=== PATIENT | male | born 1970 | race African-American/Black ===

== ENCOUNTER 2016-06-25 08:36 | Outpatient (CLI) | payer MEDICARE ==
[2016-06-25 12:36] LABS: #Basophils 0.1 thou/uL (0.0-0.2); #Eosinphils 0.2 thou/uL (0.0-0.7); #Lymphocytes 1.2 thou/uL (1.20-3.40); #Monocytes 0.3 thou/uL (0.11-0.59); #Neutrophils 2.6 thou/uL (1.40-6.50); %Basophils 1.2 % (0.0-1.0); %Eosinophils 3.6 % (0.0-10.0); %Lymphocytes 27.7 % (21.0-51.0); Hematocrit 44.3 % (42.0-52.0); Mean Platelet Volume 8.4 fL (7.4-10.4); Red Blood Cell (RBC) Count 4.59 mill/uL (4.70-6.10); White Blood Cell (WBC) Count 4.4 thou/uL (4.8-10.8)
[2016-06-25 12:37] LABS: Blood, Urine Negative (Negative); Glucose, Urine (Dipstick) Negative (Negative); Ketone, Urine Negative (Negative); Nitrite Negative (Negative); Protein, Urine (Dipstick) Trace mg/dL (Neg-Trace); Urobilinogen 0.2 mg/dL (0.2-1.0)
[2016-06-25 12:41] LABS: Bilirubin Negative (Negative)
[2016-06-25 12:55] LABS: ALT (SGPT) 24 U/L (0-55); AST (SGOT) 17 U/L (5-34); Alkaline Phosphatase 132 U/L (40-150); Anion Gap 12 mmol/L (10-20); BUN (Urea Nitrogen) 20 mg/dL (8.9-20.6); Bilirubin, Total 0.4 mg/dL (0.2-1.2); Calc. Creatinine Clearance 0 mL/min (70-130); Calcium 8.5 mg/dL (7.8-10.44); Carbon Dioxide 27 mmol/L (22-29); Chloride 107 mmol/L (98-107); Estimated GFR-MDRD 49; Globulin 3.2 g/dL (2.4-3.5); LDL Cholesterol, Calculated 77 mg/dL; Protein, Total 6.9 g/dL (6.0-8.3)
== END 2016-06-25 08:37 | disposition home or self-care (01) ==
LOC: NAVSJIPCSP 08:36
PROVIDERS: ATTEND Internal Medicine
DX: I12.9 Hypertensive chronic kidney disease with stage 1 through stage 4 chronic kidney disease, or unspecified chronic kidney disease (principal); N18.3 Chronic kidney disease, stage 3 (moderate); R56.9 Unspecified convulsions
CPT/HCPCS: 36415; 80053; 80061; 80156; 81003; 84443; 85025; 86803; G0103

== ENCOUNTER 2016-11-08 14:29 | Observation (INO) | payer MEDICARE ==
[2016-11-08] MEDS ORDERED: Lorazepam 2 MG/ML VIAL ONE (15:00)
[2016-11-08] MEDS ORDERED: diphenhydrAMINE HCl 50 MG/ML 1 ML VIAL ONE (15:01)
[2016-11-08] MEDS ORDERED: Metoclopramide HCl 10 MG/2 ML VIAL ONE (15:01)
[2016-11-08] MEDS ORDERED: Sodium Chloride 0.9% 0 ML ONE ×2 (15:02→15:03)
[2016-11-08] MEDS ORDERED: Sodium Chloride 0.9% 100 ML ONE (15:03)
[2016-11-08 15:14] LABS: Bilirubin Negative (Negative); Blood, Urine Negative (Negative); Clarity Clear (Clear); Glucose, Urine (Dipstick) Negative (Negative); Leukocyte Negative (Negative); Nitrite Negative (Negative); Protein, Urine (Dipstick) 30 mg/dL (Neg-Trace); Specific Gravity, Urine 1.015 (1.005-1.030); Urobilinogen 0.2 mg/dL (0.2-1.0); pH, Urine 7.5 (5.0-9.0)
[2016-11-08 15:16] LABS: #Basophils 0.1 thou/uL (0.0-0.2); #Eosinphils 0.1 thou/uL (0.0-0.7); #Lymphocytes 0.7 thou/uL (1.20-3.40); #Monocytes 0.4 thou/uL (0.11-0.59); #Neutrophils 3.9 thou/uL (1.40-6.50); %Eosinophils 1.8 % (0.0-10.0); %Lymphocytes 14.4 % (21.0-51.0); %Monocytes 7.4 % (0.0-10.0); %Neutrophils 75.4 % (42.0-75.0); Hemoglobin 14.7 g/dL (14.0-18.0); Mean Corpuscular HGB CONC 33.4 g/dL (32.0-36.0); Mean Corpuscular Hemoglobin 31.1 pg (27.0-31.0); Mean Corpuscular Volume 93.2 fl (80.0-94.0); Mean Platelet Volume 9.7 fL (7.4-10.4); Platelet Count 122 thou/uL (130-400); RBC Distribution Width 12.7 % (11.5-14.5); Red Blood Cell (RBC) Count 4.72 mill/uL (4.70-6.10); White Blood Cell (WBC) Count 5.1 thou/uL (4.8-10.8)
[2016-11-08 15:25] LABS: ALT (SGPT) 20 U/L (8-55); AST (SGOT) 17 U/L (5-34); Albumin 3.8 g/dL (3.5-5.0); Alkaline Phosphatase 140 U/L (40-150); Anion Gap 16 mmol/L (10-20); BUN (Urea Nitrogen) 14 mg/dL (8.9-20.6); Bilirubin, Total 0.4 mg/dL (0.2-1.2); CK (CPK) 179 U/L (30-200); Calc. Creatinine Clearance 0 mL/min (70-130); Calcium 8.7 mg/dL (7.8-10.44); Carbon Dioxide 27 mmol/L (22-29); Chloride 104 mmol/L (98-107); Estimated GFR-MDRD 55; Glucose 120 mg/dL (70-105); Protein, Total 7.8 g/dL (6.0-8.3); Sodium 143 mmol/L (136-145)
[2016-11-08 15:32] LABS: Amphetamine Not Detected (NotDetected); Bacteria/HPF Rare-Few HPF (None Seen); Barbiturates Screen Not Detected (NotDetected); Benzodiazepine Screen Not Detected (NotDetected); CKMB 2.7 ng/mL (0-6.6); Cocaine Metabolite Screen Not Detected (NotDetected); Medtox Control Line Valid? VALID (VALID); Methadone Not Detected (NotDetected); Methamphetamine Not Detected (NotDetected); Opiate Screen Not Detected (NotDetected); Oxycodone Screen Not Detected (NotDetected); Phencyclidine (PCP) Not Detected (NotDetected); RBC/HPF 0-3 HPF (0-3); Squamous Epithelial 0-3 HPF (0-3); THC/Cannabinoid Screen Not Detected (NotDetected); Tricyclic Screen Not Detected (NotDetected); Troponin I 0.019 ng/mL (< 0.028); WBC/HPF None Seen HPF (0-3)
--- NOTE | 2016-11-08 15:50 | CT ---
HEAD CT WITHOUT CONTRAST 11/08/2016 HISTORY: Headache. COMPARISON: 08/19/2013 TECHNIQUE: Serial axial CT imaging at 5 mm intervals, from the vertex through the skull base, without contrast. FINDINGS: There is extensive encephalomalacia throughout the MCA territory on the left, evidence of a remote i nfarction, unchanged. The imaged paranasal sinuses/mastoid air cells are well aerated. No displaced calvarial fracture. No intracranial hemorrhage or midline shift. There is a small area of remote infarction within the posterior aspect of the right cerebellar hemisphere. IMPRESSION: 1. Areas of prior infarction, as described above. 2. No intracranial hemorrhage. POS: ZAHIRA
[2016-11-08 18:38] LABS: Carbamazepine-Tegretol 7.8 ug/mL (4.0-12.0)
[2016-11-08] MEDS ORDERED: Nitroglycerin 0.4 MG TAB (25 Tab Bottle) SL PRN (19:07)
[2016-11-08] MEDS ORDERED: Lorazepam 2 MG/ML VIAL SLOW IVP PRN (19:10)
[2016-11-08] MEDS: Atorvastatin Calcium 40 MG TAB PO SCH (20:52)
[2016-11-08] MEDS: carBAMazepine 200 MG TAB PO SCH (20:52)
[2016-11-08] MEDS: guaiFENesin/DM ER PO SCH (20:53)
[2016-11-08] MEDS: Carvedilol 25 MG TAB PO SCH (20:53)
[2016-11-08 21:49] LABS: CKMB 1.8 ng/mL (0-6.6)
[2016-11-08] MEDS: Naproxen 500 MG TAB PO SCH (23:31)
[2016-11-09 03:28] LABS: CKMB 1.4 ng/mL (0-6.6); Troponin I 0.021 ng/mL (< 0.028)
[2016-11-09] MEDS: Naproxen 500 MG TAB PO SCH ×4 (05:27→23:13)
[2016-11-09] MEDS: levETIRAcetam 500 MG TAB PO SCH ×2 (09:07→20:45)
[2016-11-09] MEDS: guaiFENesin/DM ER PO SCH ×2 (09:07→20:45)
[2016-11-09] MEDS: Aspirin 81 mg Enteric Coated Tablet PO SCH (09:09)
[2016-11-09] MEDS: carBAMazepine 200 MG TAB PO SCH ×3 (09:09→20:45)
[2016-11-09] MEDS: Carvedilol 25 MG TAB PO SCH ×2 (09:09→20:45)
[2016-11-09] MEDS ORDERED: Sodium Chloride 0.9% 10 ML ONE (12:28)
[2016-11-09 14:04] VITALS: BMI 34.5
[2016-11-09] MEDS: Atorvastatin Calcium 40 MG TAB PO SCH (20:45)
[2016-11-10] MEDS: Naproxen 500 MG TAB PO SCH (05:13)
[2016-11-10 07:22] VITALS: BP 135/82; TEMP 96.1
[2016-11-10] MEDS: guaiFENesin/DM ER PO SCH (08:12)
[2016-11-10] MEDS: levETIRAcetam 500 MG TAB PO SCH (08:13)
[2016-11-10] MEDS: Aspirin 81 mg Enteric Coated Tablet PO SCH (08:13)
[2016-11-10] MEDS: carBAMazepine 200 MG TAB PO SCH (08:13)
[2016-11-10] MEDS: Carvedilol 25 MG TAB PO SCH (08:14)
--- NOTE | 2016-11-10 12:27 | SS ---
DATE OF PLACEMENT IN OBSERVATION [facility]MAN[facility]: 11/08/2016 DATE OF DISCHARGE FROM OBSERVATION [facility]: 11/10/2016 FINAL DIAGNOSES: 1. 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 Chronic hypertension. 3. History of right hemiplegia, status post left middle cerebral artery infarct. 4. History of previous tonic-clonic seizures on carbamazepine and Tegretol. 5. Coronary artery disease status post coronary artery bypass graft. HOSPITAL COURSE: The patient is a 46-year-old unfortunate black male with a history of hypertension for many years, subsequent left middle cerebral artery infarct with right hemiplegia as well as a h istory of recurrent seizures controlled on Tegretol 200 mg 3 times daily. He had been doing well un til he presented with recurrent episodes over the last several days of headaches, right-sided chest pain and diffuse shaking. He is able to answer questions, but was not able to stop the shaking. He was seen in the emergency room and episodes of these seizures were documented. He was given IV Ati van with control of seizures. Tegretol level was drawn, but was not available and he was placed in observation umanzor. Subsequently, the Tegretol level came back therapeutic and he was started on Kepp ra 500 twice daily. He has done well since admission with no further seizures for 36 hours. Theref uyen, felt to be stable to be discharged home on Keppra 500 twice daily in addition to his prehospita lization medications of amlodipine 10 daily, aspirin 81 daily, atorvastatin 80 daily, carvedilol 25 twice daily, doxazosin 4 daily, Imdur 30 daily, naproxen 500 every 6 hours, omeprazole 20 daily, and hydralazine 25 three times daily. PAST MEDICAL HISTORY: Shows he does have a significant history of hypertension, but controlled on m ultiple medications. He also has a history of coronary artery disease status post angioplasty. He also has a history of peripheral vascular disease with carotid plaques and hyperlipidemia. PAST SURGICAL HISTORY: Positive for coronary artery bypass graft in past. SOCIAL HISTORY: He is disabled, lives at home with his working everyday. He stays at home by himself. He is a nonsmoker and nondrinker. REVIEW OF SYSTEMS: Constitutional: He has recurrent headaches, but no change in his vision or hear ing. No hoarseness or dysphagia. Pulmonary: Denies cough, sputum production, pneumonia, asthma, t uberculosis. Cardiovascular: See history of present illness. He does have recurrent chest pain, b ut has had no documented ischemic events with negative enzymes and EKGs in the emergency room multip le times over the last several years. He has no orthopnea, paroxysmal nocturnal dyspnea or edema. Gastrointestinal: He denies nausea, vomiting, diarrhea, constipation, abdominal pain. Genitourinar y: Denies dysuria, hematuria, and nocturia. Musculoskeletal: He has weakness in the right arm and leg and some stiffness. Neurologic: He has the above-mentioned right hemiplegia. 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 VITAL SIGNS: On admission showed him to have blood pressure of 187/113, postictal, but then normali zed on his medication and on discharge, his blood pressure is 135/82, respirations 20, O2 sats 95%. He was afebrile. LUNGS: Clear. CARDIAC: Examination showed regular rhythm. ABDOMEN: Soft and nontender. SKIN AND EXTREMITIES: Showed no edema, clubbing, cyanosis. NEUROLOGIC: Shows right hemiplegia. LABORATORY DATA: Showed white count of 5100, hematocrit of 44, and hemoglobin 14. Sodium was 143, potassium 4.0, chloride 104, bicarbonate 27, BUN 14, creatinine 1.64, and glucose 128. Cardiac enzy mes x3 were normal. Liver functions were normal. Tegretol level as mentioned above returned therap eutic at 7.8 with a range of 4-12. He will be seen by myself in the office in the next 1-2 weeks.
[2016-11-10 17:41] LABS: Carbamazepine-Tegretol 8.2 ug/mL (4.0-12.0)
== END 2016-11-10 10:35 | disposition home or self-care (01) ==
LOC: NAV ERS 14:29 → NAV ACUTE 16:22
PROVIDERS: ADMIT Internal Medicine; ATTEND Internal Medicine
DX: G40.409 Other generalized epilepsy and epileptic syndromes, not intractable, without status epilepticus (principal); I69.351 Hemiplegia and hemiparesis following cerebral infarction affecting right dominant side; I10 Essential (primary) hypertension; I25.10 Atherosclerotic heart disease of native coronary artery without angina pectoris; Z95.1 Presence of aortocoronary bypass graft; I73.9 Peripheral vascular disease, unspecified; E78.5 Hyperlipidemia, unspecified; Z79.82 Long term (current) use of aspirin; Z79.899 Other long term (current) drug therapy
CPT/HCPCS: 36415; 70450; 80053; 80156; 80306; 81003; 81015; 82550; 82553; 84484; 85025; 96374; 96375; A4216; G0378; J1200; J2060; J2765; J7050